=== PATIENT | male | born 1945 | race Caucasian/White ===

== ENCOUNTER 2023-10-22 09:44 | Inpatient (IN) ==
--- NOTE | 2023-10-05 10:24 | PAT Medication Instructions ---
Medication Instructions Date of Service October 05, 2023 Home Medications acetaminophen 500 mg tablet 1,500 mg PO BID aspirin 325 mg tablet 325 mg PO QAM dicyclomine 10 mg capsule 10 mg PO QID PRN Abdominal Pain empagliflozin 25 mg tablet 12.5 mg PO PM glipizide 5 mg tablet 5 mg PO BID hydrochlorothiazide 25 mg tablet 25 mg PO QAM lisinopril 20 mg tablet 20 mg PO PM omega 6-lyj-fxx-fish oil 120 mg-180 mg-500 mg capsule (Fish Oil) 1 cap PO DAILY omeprazole 20 mg capsule,delayed release 20 mg PO QAM potassium citrate 10 mEq (1,080 mg) tablet,extended release 10 meq PO QAM ASK your prescriber and surgeon aspirin 325 mg tablet 325 mg PO QAM STOP taking 2 weeks before surgery omega 7-zwp-xzo-fish oil 120 mg-180 mg-500 mg capsule (Fish Oil) 1 cap PO DAILY STOP taking 3 days before surgery empagliflozin 25 mg tablet 12.5 mg PO PM DO NOT take the morning of surgery dicyclomine 10 mg capsule 10 mg PO QID PRN Abdominal Pain glipizide 5 mg tablet 5 mg PO BID hydrochlorothiazide 25 mg tablet 25 mg PO QAM potassium citrate 10 mEq (1,080 mg) tablet,extended release 10 meq PO QAM Take morning of surgery With a small sip of water, OTHERWISE NOTHING TO EAT OR DRINK AFTER MIDNIGHT: acetaminophen 500 mg tablet 1,500 mg PO BID omeprazole 20 mg capsule,delayed release 20 mg PO QAM Take evening before surgery acetaminophen 500 mg tablet 1,500 mg PO BID dicyclomine 10 mg capsule 10 mg PO QID PRN Abdominal Pain (if needed) glipizide 5 mg tablet 5 mg PO BID lisinopril 20 mg tablet 20 mg PO PM Other Notes If you have any questions please call us at [phone] or [phone] or [phone] or [phone]
--- NOTE | 2023-10-08 12:42 | Anesthesiology Consultation ---
Date of Service October 08, 2023 Assessment & Plan (1) Encounter for pre-operative examination: Chart Review Chart Review: Acceptable Risk for Surgery (pending PCP clearance and LE ultrasound ) and Patient seen in Pre Admission Testing - Awaiting PCP clearance 10/15/23 (Dr. Harvinder Acuña0 [facility]) (Please fax preop testing to PCP (including EKG)) - Please obtain LE ultrasound from PCP office that was done 09/2023 - Check BSG AM DOS - Patient is not an OPJ candidate (currently 23 hour observation) Per PAT appt on 10/08/23, no recent illness/disease exposures, illness related symptoms, or recent illness/disease positive tests. Will leave to surgeon's discretion if preop Covid testing needed Teaching & Discussion Pre-Anesthesia Teaching/Discussion Notes: Instructed NPO after midnight before surgery,except medications with 15 cc of water. Medication instructions provided according to the PAT guidelines. History Surgery Operation Date: 10/22/23 07:00 Proposed Procedures p Left Reverse Total Shoulder Arthroplasty - Kofi Eldridge M.D. Height/Weight Height: 6 ft 1 in Weight: 84.4 kg Allergies Allergy/AdvReac Type Severity Reaction Status Date / Time latex Allergy Intermediate Rash Verified 10/05/23 08:56 Medications Home Medications Medication Instructions Recorded Confirmed Last Taken acetaminophen 500 mg tablet 1,500 mg PO BID 10/05/23 10/05/23 Unknown aspirin 325 mg tablet 325 mg PO QAM 10/05/23 10/05/23 Unknown dicyclomine 10 mg capsule 10 mg PO QID PRN Abdominal Pain 10/05/23 10/05/23 Unknown empagliflozin 25 mg tablet 12.5 mg PO PM 10/05/23 10/05/23 Unknown glipizide 5 mg tablet 5 mg PO BID 10/05/23 10/05/23 Unknown hydrochlorothiazide 25 mg tablet 25 mg PO QAM 10/05/23 10/05/23 Unknown lisinopril 20 mg tablet 20 mg PO PM 10/05/23 10/05/23 Unknown omega 9-ptm-rgc-fish oil 120 1 cap PO DAILY 10/05/23 10/05/23 Unknown mg-180 mg-500 mg capsule (Fish Oil) omeprazole 20 mg capsule,delayed 20 mg PO QAM 10/05/23 10/05/23 Unknown release potassium citrate 10 mEq (1,080 10 meq PO QAM 10/05/23 10/05/23 Unknown mg) tablet,extended release Past Medical History Medical History Double vision just up close, 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, 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, gets checked yearly - wears eye patch BPH (benign prostatic hyperplasia) Kidney stones hx Diverticular disease History of IBS GERD (gastroesophageal reflux disease) well controlled and stable Diabetes mellitus, type 2 oral meds only - blood sugars stable per patient Skin cancer (melanoma) removed from back Bladder cancer 2016 > s/p TURBT 2019 > s/p TURBT and then chemo injected at same time PTSD (post-traumatic stress disorder) no meds Aortic aneurysm Per ECHO 09/2023- Mild aortic root dilation at 3.7 cm, mild ascending aortic dilation at 3.6 cm Cyst of knee joint behind left knee DVT (deep venous thrombosis) 2015 > s/p bladder ca surgery Initially thought to have DVT June 2023- on Eliquis x 4 months- recently had repeat ultrasound- no DVT- only ganglion cyst - Eliquis d/c'ed Hypertension Hyperlipidemia Exercise / Class Metabolic Activity II 4-5 Yardwork/Stairs/Walk up hill (one flight of stairs - no chest pain or SOB ) Past Family History Family History Mother Diabetes Past Surgical History Surgical History History of lumbar surgery x2 History of arthroscopy left knee > Bakers cyst History of lithotripsy History of cystoscopy History of cholecystectomy History of colonoscopy History of tooth extraction History of tonsillectomy History of cardiac cath "several" yrs ago > no stents Past Anesthesia History No Hx of Anesthesia Complications and No Family Hx of Anesthesia Complications History of PONV No Hx of PONV and No Hx of Motion Sickness Social History Smoking Status: Former smoker Do You Dip or Chew Tobacco: No Smoking End Date: early Hx Alcohol Use: Yes Alcohol type: hard liquor alcohol intake frequency: a few times a month Hx Substance Use: Yes substance use type: marijuana Substance Use Type Other:: remote hx marijuana use Review of Systems - Hx of snoring- no hx of sleep study Patient denies chest pain, shortness of breath, dyspnea on exertion, reflux, cough, wheezing, palpitations. No hx of seizures, stroke, SC. No hx of blood transfusions Physical Exam Vital Signs VITALS BP 124/80 P 57 TEMP 97.8 SP02 97% RESP 16 Constitutional no acute distress Wearing right sided eye patch ENMT Mouth: no TMJ clicking Thyromental Distance: > or= 3.5 Finger Breadths (3.5) Mallampati Class: II Missing molars Neck neck extension not limited Respiratory normal respiratory effort; no respiratory distress Auscultation: lungs clear to auscultation bilaterally; no wheezes Cardiovascular Rate/Rhythm: regular rate and regular rhythm Heart Sounds: no murmur Vessels: no carotid bruit Musculoskeletal Spine: no pain with cervical ROM Extremities: extremities normal to inspection Psychiatric Orientation: alert Lab Results Anesthesia Preop Results Results Anesthesia Widget: WBC 6.32 K/ul (4.8-10.8) 10/08/23 Hgb 15.0 g/dl (14.0-18.0) 10/08/23 Hct 45.4 % (42.0-52.0) 10/08/23 Plt 204 K/uL (130-400) 10/08/23 Na 139 mmol/L (136-145) 10/08/23 K 4.5 mmol/L (3.5-5.1) 10/08/23 Cl 104 mmol/L (98-107) 10/08/23 CO2 30 mmol/L (21-32) 10/08/23 BUN 33 mg/dl (6-23) H 10/08/23 Creat 1.22 mg/dl (0.6-1.4) 10/08/23 Glucose Level 113 mg/dl (70-99(Fasting)) H 10/08/23 PT 11.1 Seconds (9.0-12.0) 10/08/23 PTT 27 Seconds (21-31) 10/08/23 INR 1.0 (0.9-1.1) 10/08/23 HA1c 7.0 % (4.5-5.6) H 10/08/23 Urine Color Yellow 10/08/23 Urine Appearance Clear (Clear) 10/08/23 Urine pH 5.0 (4.5-7.5) 10/08/23 Urine Specific Yoder 1.032 (1.000-1.030) H 10/08/23 Urine Protein Negative (Negative) 10/08/23 Urine Glucose (UA) 3+ (Negative) H 10/08/23 Urine Ketones Trace (Negative) H 10/08/23 Urine Blood Negative (Negative) 10/08/23 Urine Nitrite Negative (Negative) 10/08/23 Urine Bilirubin Negative (Negative) 10/08/23 Urine Urobilinogen Negative (Negative) 10/08/23 Urine Leukocyte Esterase Negative (Negative) 10/08/23 Blood Type O Negative 10/08/23 Antibody Screen NEGATIVE 10/08/23 Testing Electrocardiogram Date: 10/08/23 Unusual P axis, possible ectopic atrial rhythm at 56bpm (Discussed with Dr. Dozier- no significant cardiac history, good functional status, ECHO 09/2023 without acute issues; will send EKG to PCP to review at preop appt but otherwise no additional follow up is needed at this time) Chest X-Ray Date: 10/08/23 FINDINGS: Lung volumes are normal. There is no consolidation to suggest pneumo lucia. Linear lingular densities favor atelectasis or scarring. There is no pneumothorax or pleural effusion. Cardiac size is normal. Mediastinal contours are normal. There is no evidence for pulmonary edema. IMPRESSION: No acute cardiopulmonary findings. Echocardiogram Date: 09/14/23 EF: 54% LV Function: normal RWMA: + none Other Findings: + diastolic dysfunction (Grade I ) Mild MR Mild AR Mild aortic root dilation- aortic root 3.7cm. Mild ascending aorta dilation- 3.6cm Estimated PASP 34mmHg
--- NOTE | 2023-10-21 15:43 | History & Physical Report ---
Date of Service October 21, 2023 Assessment & Plan (1) Arthritis of left glenohumeral joint: Plan: He has left shoulder glenohumeral joint arthritis with a known full-thickness rotator cuff tear on MRI back in 2020. We discussed further conservative management with repeat injections versus definitive surgical intervention, and he would much prefer the latter at this point, I think this is reasonable. I advised him his only viable surgical treatment option is a reverse total shoulder arthroplasty. This was explained in detail to him, including, and limitations in motion after the surgery. He would like to proceed with this surgery. We will need medical clearance, especially to come off of his Eliquis for at least 3 days prior to surgery. We also need to check his most recent hemoglobin A1c. Risks, benefits, and alternatives of surgery were explained in detail. The surgical procedure, as well as postoperative recovery and rehabilitation, was also explained in detail. Risks include bleeding; infection; damage to surrounding structures such as nerves, blood vessels, and tendons that run in the area; persistent pain or stiffness; hardware failure; dislocation; brachial plexus palsy; blood clots; or need for further surgery. The patient understands all of this and wishes to proceed with surgery. Risks will be reviewed on the day of surgery and informed consent obtained. History of Present Illness Chief Complaint: Left shoulder pain Primary Care Provider: Harvinder Acuña DO Mr. Santacruz returns for his left shoulder pain. Again, he is an 78-year old male with left shoulder arthritis. He notes relatively mild aches and pains in that left shoulder for many years, but it got acutely worse around October 2020 without any specific injury. I initially evaluated him in November 2020, diagnosed him with fairly severe glenohumeral joint arthritis with a rotator cuff tear, and gave him a steroid injection as first-line treatment. He did very well with that injection, and I did not see him again until March 2023, and repeated his injection at that time. This last injection only gave him relief of his pain for about 3 months, but the injection has since worn off and his pain is returned. This is severely limiting to him. This pain has significantly worsened over the past 3 years. It does wake him up at night. Of note, he does have a significant history of blood clots. He has had 2 blood clots in his left leg, but denies history of PE. He is currently on Eliquis. He reports that he is scheduled for an ultrasound in early September, and based on the results of this he may be able to come off of the Eliquis. He also has a history of diabetes, and states that his last A1c was about 7.1. He has a history of bladder cancer without known metastases. He has worsening pain and function in that shoulder, and difficulty with overhead motion. Allergies Allergy/AdvReac Type Severity Reaction Status Date / Time latex Allergy Intermediate Rash Verified 10/05/23 08:56 Home Medications Medication Instructions Recorded Confirmed Type acetaminophen 500 mg tablet 1,500 mg PO BID 10/05/23 10/05/23 History aspirin 325 mg tablet 325 mg PO QAM 10/05/23 10/05/23 History dicyclomine 10 mg capsule 10 mg PO QID PRN Abdominal Pain 10/05/23 10/05/23 History empagliflozin 25 mg tablet 12.5 mg PO PM 10/05/23 10/05/23 History glipizide 5 mg tablet 5 mg PO BID 10/05/23 10/05/23 History hydrochlorothiazide 25 mg tablet 25 mg PO QAM 10/05/23 10/05/23 History lisinopril 20 mg tablet 20 mg PO PM 10/05/23 10/05/23 History omega 3-jyg-sqq-fish oil 120 1 cap PO DAILY 10/05/23 10/05/23 History mg-180 mg-500 mg capsule (Fish Oil) omeprazole 20 mg capsule,delayed 20 mg PO QAM 10/05/23 10/05/23 History release potassium citrate 10 mEq (1,080 10 meq PO QAM 10/05/23 10/05/23 History mg) tablet,extended release Past Med/Surg History Medical History Double vision just up close, 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, 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, gets checked yearly - wears eye patch BPH (benign prostatic hyperplasia) Kidney stones hx Diverticular disease History of IBS GERD (gastroesophageal reflux disease) well controlled and stable Diabetes mellitus, type 2 oral meds only - blood sugars stable per patient Skin cancer (melanoma) removed from back Bladder cancer 2015 > s/p TURBT 2019 > s/p TURBT and then chemo injected at same time PTSD (post-traumatic stress disorder) no meds Aortic aneurysm Per ECHO 09/2023- Mild aortic root dilation at 3.7 cm, mild ascending aortic dilation at 3.6 cm Cyst of knee joint behind left knee DVT (deep venous thrombosis) 2016 > s/p bladder ca surgery Initially thought to have DVT June 2023- on Eliquis x 4 months- recently had repeat ultrasound- no DVT- only ganglion cyst - Eliquis d/c'ed Hypertension Hyperlipidemia Surgical History History of lumbar surgery x2 History of arthroscopy left knee > Bakers cyst History of lithotripsy History of cystoscopy History of cholecystectomy History of colonoscopy History of tooth extraction History of tonsillectomy History of cardiac cath "several" yrs ago > no stents Family History Mother Diabetes Social History Smoking Status: Former smoker Smoking End Date: early ; Second Hand Exposure: No; Do You Dip or Chew Tobacco: No; Tobacco Cessation Education Requested by Patient: No Hx Alcohol Use: Yes Alcohol type: hard liquor Hx Substance Use: Yes Substance Use Type Other:: remote hx marijuana use Preferred Language: Malay Communication Ability: Effective Security Police Officer Required: No Beliefs That Will Affect Care: None Current Living Situation: Spouse Other Information That Helps Us Care for You: No Feels Safe at Home: Yes Safety Concerns: Feels Safe At This Time Assistive Devices: Denture - Lower and Glasses Physical Exam Physical Exam: Examination of the left shoulder shows mild limitation in shoulder range of motion due to pain, with palpable crepitus during motion. Rotator cuff strength is globally weak. Results & Data Diagnostic Findings Previous x-rays of the left shoulder from December 2022 were independently int erpreted by me and compared with previous x-rays from October 2020. They show progression of the glenohumeral joint arthritis, now severe, and progression of the proximal migration of the humeral head. Previous MRI of the left shoulder from November 2020 was reviewed. It shows advanced arthritis at the glenohumeral joint with near complete loss of the joint space. There is a large full-thickness tear involving the supraspinatus with significant tendon retraction and proximal migration of the humeral head.
[~2023-10-22 09:44] MED LIST: ACETAMINOPHEN 500 MG TAB PO SCH; BUPIVACAINE 0.5 % 5 MG/1 ML PF 10ML VIAL ONE; CeleBREX 200 MG CAP PO SCH; FAMOTIDINE 20 MG TAB PO SCH; GABAPENTIN 300 MG CAP PO SCH; LR 15ML/HR IV SCH; LR 60ML/HR IV SCH; METOCLOPRAMIDE HCL 10 MG TABLET PO SCH; TRANEXAMIC ACID 1,000 MG **IV Pre-op IV SCH; ceFAZolin 2000MG 2,000 MG/15 ML SYR IV SCH; dexAMETHasone 4 MG TAB PO SCH
[2023-10-22] MEDS ORDERED: ONDANSETRON INJ 2 MG/ML 2 ML VIAL ONE (10:34)
[2023-10-22] MEDS ORDERED: LIDOCAINE 2% 2 ML VIAL/AMP(20MG/ML) INFIL ONE (10:34)
[2023-10-22] MEDS ORDERED: MIDAZOLAM HCL 1 MG/ML 2ML VIAL ONE (10:34)
[2023-10-22] MEDS ORDERED: DEXAMETHASONE SOD INJ 4 MG/ML VIAL ONE (10:34)
[2023-10-22] MEDS ORDERED: GLYCOPYRROLATE 0.2 MG/ML VIAL ONE (10:34)
[2023-10-22] MEDS ORDERED: ROCURONIUM BROMIDE 10 MG/ML 5 ML VIAL IV ONE (10:34)
[2023-10-22] MEDS ORDERED: PROPOFOL IV EMULSION 10 MG/ML 20 ML VIAL IV ONE (10:34)
[2023-10-22] MEDS ORDERED: fentaNYL citrate PF 100 MCG/2 ML VIAL ONE (10:34)
--- NOTE | 2023-10-22 11:56 | History & Physical Bridge Note ---
Date of Service October 22, 2023 History & Physical Bridge Note I have examined the patient, reviewed the History & Physical and in the interval since the performance of the History & Physical I have noted the following changes of clinical significance: no changes noted
[2023-10-22] MEDS ORDERED: PROMETHAZINE HCL 6.25 MG in SODIUM CHLORIDE 0.9% 50 ML IV PRN (11:58)
[2023-10-22] MEDS ORDERED: ONDANSETRON INJ 2 MG/ML 2 ML VIAL IV PRN ×2 (11:58→15:22)
[2023-10-22] MEDS ORDERED: KETOROLAC 30 MG/ML VIAL IV PRN (11:58)
[2023-10-22] MEDS ORDERED: ATROPINE SULFATE 0.1 MG/ML 10ML SYR IV PRN (11:58)
[2023-10-22] MEDS ORDERED: LABETALOL HCL IV 5 MG/ML 20ML IV PRN (11:58)
[2023-10-22] MEDS ORDERED: fentaNYL citrate PF 100 MCG/2 ML VIAL IV PRN (11:58)
[2023-10-22] MEDS ORDERED: SUGAMMADEX SODIUM 200 MG/2 ML VIAL IV ONE (12:48)
[2023-10-22] MEDS ORDERED: ePHEDrine sulfate 50 MG/5 ML SYR ONE (12:48)
[2023-10-22] MEDS ORDERED: PHENYLEPHRINE 100MCG/ML 10ML SYR IV ONE (12:54)
--- NOTE | 2023-10-22 14:07 | Operative Report ---
Post Operative Report Pre & Post Diagnosis Operation Date: 10/22/23 11:40 Pre-Op Diagnosis: Left shoulder glenohumeral joint arthritis with rotator cuff tear Post-Op Diagnosis: Left shoulder glenohumeral joint arthritis with rotator cuff tear I identified the patient and participated in the time-out.: Yes Procedure Operation Date: 10/22/23 11:40 Actual Procedures Left reverse total shoulder arthroplasty (26503) Open biceps tenodesis (78588) - Kofi Eldridge M.D. Surgeon Kofi Eldridge MD Hide And Skin Processing Worker Osmani Fernández PA-C Estimated Blood Loss 75 Findings Consistent with Post-Op Diagnosis Specimens None Drains None Anesthesia Type General Regional Complications none Disposition Disposition: Recovery Room Indications Mr. Santacruz is an 78-year-old male with chronic left shoulder pain and weakness. History, clinical exam, and imaging were consistent with the above diagnosis. Risks, benefits, and alternatives of surgery were explained in detail. The patient understood all this and wished to proceed. Description of Procedure Components Implanted: Tornier Reverse Total Shoulder implants Perform glenoid baseplate: 29mm, 15 degree full wedge with 6.5mm central screw and 5.0mm peripheral screws x 4 Glenosphere: 39mm, +3mm eccentric offset Ascend Flex humeral stem: 6B Standard length (86mm) Humeral tray: 3.5 mm offset, +6mm thickness Polyethylene insert: 39mm, +9mm thickness Patient was identified in the preoperative holding area. Operative extremity was marked. Regional blockade was given by the Anesthesia Staff. Patient was then brought back to the operating room, and general anesthesia was induced without complication. Appropriate weight-based dose of Ancef was infused intravenously for antibiotic prophylaxis. The patient was then placed in the beachchair position. Left arm was then prepped and draped in a standard sterile fashion using Chlorhexidine prep. A standard deltopectoral incision was made through the skin and subcutaneous tissue. The cephalic vein was identified and retracted medially. Small branches to the deltoid were coagulated as necessary. The clavipectoral fascia was then incised and the subdeltoid space was opened. The rotator cuff was found to be deficient, and I therefore decided to perform a reverse total shoulder arthroplasty as planned preoperatively. The biceps tendon was identified within the bicipital groove and tenodesed at the superior border of the pectoralis tendon with #2 FiberWire suture. The biceps tendon was then divided proximal to the tenodesis site and the rotator interval was opened. The proximal portion of the biceps tendon was excised. The remaining subscapularis tendon was elevated subperiosteally off of the lesser tuberosity. The glenohumeral joint was then dislocated, and large osteophytes were debrided with a ronguer. The intramedullary canal of the humerus was then opened with a canal finder. The humeral head cut was then made in the appropriate inclination and version using the cutting guide. The humeral canal was then sequentially broached to the appropriate size. A protective cap was then placed on top of the humeral trial. I then turned my attention to the glenoid. The proximal stump of the biceps tendon was excised, along with the labrum circumferentially around the glenoid. The Blueprint drill guide was then positioned on the glenoid, and the guidepin was then inserted. The 15 degree angled reamer was then inserted over the guidepin and an reamed to an appropriate depth. The central screw hole was drilled, and appropriate length 6.5mm central screw was selected. The baseplate was then implanted into place according to our preoperative Blueprint plan by tightening down the central screw. A peripheral 5mm nonlocking screw was placed postero-superiorly first for additional compression of the baseplate, and then additional locking 5 mm peripheral screws were placed to complete fixation of the baseplate. Glenosphere was then impacted and secured. A trial humeral tray and insert were placed on the trial humeral stem, and a trial reduction was carried out. Once I achieved acceptable joint stability and range of motion with the trial implants, the final humeral implants were assembled on the back table and then impacted into position. The shoulder was then reduced and taken through full range of motion to ensure good stability and acceptable motion. Wound was then copiously irrigated with sterile saline. Deep fascia was closed with 0 V-lock suture. Subcutaneous tissue was closed with 2-0 V-lock, and skin was closed with 3-0 V-lock. Skin was then sealed with Dermabond. Sterile dressings were then applied with a waterproof silver-impregnated dressing, and the arm was placed into a sling. The patient was awakened from anesthesia and taken to the Post Anesthesia Care Unit in stable condition. There were no immediate complications from the procedure. I was present and scrubbed for the entire procedure, with the exception of final skin closure and dressing application. Due to the complex nature of the procedure, the entire surgery was performed with the operational assistance of Osmani Fernández PA-C. The assistant merchandise manager, under direct supervision, was involved in the performance of all aspects of the surgical procedure including hemostasis, tissue incision and retraction, instrument management, patient positioning, and wound closure. I attest to the content of the Intraoperative Record and any orders documented therein. Any exceptions are noted below.
--- NOTE | 2023-10-22 14:43 | Anesthesiology Progress Note ---
Date of Service October 22, 2023 Anesthesia Post Procedure Vital Signs Vital Signs: Temp Pulse Pulse Resp BP Pulse Ox O2 Del Method 10/22/23 14:40 82 18 134/93 96 Room Air 10/22/23 14:30 82 15 143/91 H 95 Oxymask 10/22/23 14:20 83 15 138/88 100 Oxymask 10/22/23 14:13 36.6 C 85 16 138/80 100 Oxymask 10/22/23 10:24 36.6 C 60 20 146/87 H 97 Room Air O2 Flow Rate 10/22/23 14:40 10/22/23 14:30 2 10/22/23 14:20 6 10/22/23 14:13 10 10/22/23 10:24 Transfer of Care Handoff Completed per policy Notes Mental Status: alert / awake / arousable Patient Amnestic to Procedure: Yes Nausea / Vomiting: adequately controlled Pain: adequately controlled Airway Patency, RR, SpO2: stable & adequate BP & HR: stable & adequate Hydration State: stable & adequate Anesthetic Complications: no major complications apparent
[2023-10-22] MEDS ORDERED: METOCLOPRAMIDE HCL INJ 5 MG/ML 2 ML VIAL IV PRN (15:22)
[2023-10-22] MEDS ORDERED: oxyCODONE HCL IR 5 MG TAB (IMMEDIATE RELEASE) PO PRN (15:22)
[2023-10-22] MEDS ORDERED: DICYCLOMINE HCL 10 MG CAP PO PRN (15:22)
[2023-10-22] MEDS ORDERED: bisacodyL 10 MG SUPP PR PRN (15:22)
[2023-10-22] MEDS ORDERED: MAGNESIUM HYDROXIDE SUSP 30 ML UDC PO PRN (15:22)
[2023-10-22] MEDS ORDERED: NALOXONE HCL 0.4 MG/1 ML VIAL/CARP IV PRN (15:22)
[2023-10-22] MEDS ORDERED: PHARMACY GLYCEMIC MGMT CONSULT PRN (15:22)
--- NOTE | 2023-10-22 15:28 | XRay Report ---
XR shoulder LT min 2V routine CLINICAL HISTORY: Post shoulder surgery COMPARISON STUDY: None. FINDINGS: Status post reverse left total shoulder arthroplasty. The hardware is intact. No fracture o r dislocation. IMPRESSION: Status post reverse left total shoulder arthroplasty. No evidence for hardware complicat ion. ACT 112: Negative or not required by law. Electronically signed by: Robel Ortez M.D. 10/22/2023 3:27 PM
[2023-10-22] MEDS: SODIUM CHLORIDE 0.9% 1,000 ML IV SCH (15:41)
[2023-10-22] MEDS ORDERED: GLUCOSE 10 TAB/TUBE PO PRN (15:45)
[2023-10-22] MEDS ORDERED: DEXTROSE 50% 50 ML SYRINGE IV PRN (15:45)
[2023-10-22] MEDS ORDERED: GLUCOSE 40% GEL 15 GM TUBE PO PRN (15:45)
[2023-10-22] MEDS ORDERED: GLUCAGON FOR INJ 1 MG VIAL IM PRN (15:45)
[2023-10-22] MEDS ORDERED: CARBOHYDRATES FOR HYPOGLYCEMIA PO PRN (15:45)
[2023-10-22] MEDS ORDERED: LANTUS PER UNIT CHARGE SC STA (15:46)
--- NOTE | 2023-10-22 15:53 | Pharmacy Report ---
Pharmacy Glycemic Short Note 2 - Date of Service October 22, 2023 - Glycemic Short BSG Results (Last 24 hours): 10/22/23 10/22/23 10:16 14:23 POC Glucose 129 H 144 H OUTPATIENT ANTIDIABETIC REGIMEN: * Jardiance 12.5 mg PO daily (of note, it is not recommended to split Jardiance tabs in half) * Glipizide 5 mg PO BID * HbA1c: 7.0% (10/08/23) ASSESSMENT: * 78 yo M admitted on 10/22/23 postoperatively following a left reverse total shoulder arthroplasty. Pharmacy has been consulted to assist with inpatient glycemic management. Patient is a Type 2 diabetic as an outpatient. Please refer to outpatient regimen and most recent HbA1c above. * Preop BSG was 129 mg/dL. Received 8 mg PO dexamethasone preop and 4 mg IV dexamethasone intraop per my review of chart. Postop BSG was 144 mg/dL. * Will give a one time dose of basal insulin at 0.25 units/kg. Reassess basal needs tomorrow AM. Novolog ordered based on weight/stress of 3 for now. Ordered a T2DM diet, will follow up at dinner time to ensure patient is tolerating PO intake postop. Likely will need to back off insulin dosing once steroids wear off. PLAN FOR INPATIENT GLYCEMIC CONTROL: * Hold outpatient oral diabetes medications * Basal insulin * Lantus 20 units SC x 1 now * Bolus insulin * NovoLog per scale ACHS or Q6hrs while NPO * Goal Range: Low 110 mg/dL - High 140 mg/dL * Correction Factor: 20 mg/dL/unit * Nutritional / Prandial insulin per carb ratio of 1 unit per 7 grams CHO consumed
[2023-10-22] MEDS: ACETAMINOPHEN 500 MG TAB PO SCH ×2 (16:49→23:18)
[2023-10-22] MEDS: INSULIN ASPART PER UNIT CHARGE SC SCH ×2 (16:58→20:45)
[2023-10-22] MEDS: IBUPROFEN 600 MG TAB PO SCH (20:45)
[2023-10-22] MEDS: DOCUSATE SODIUM 100 MG CAP PO SCH (20:46)
[2023-10-22] MEDS: ceFAZolin 2000MG 2,000 MG/15 ML SYR IV SCH (20:47)
[2023-10-22] MEDS ORDERED: EMPAGLIFLOZIN 25 MG TAB PO SCH (21:00)
[2023-10-22] MEDS ORDERED: glipiZIDE 5 MG TAB PO SCH (21:00)
[2023-10-22] MEDS ORDERED: SENNA 8.6 MG TAB PO SCH (21:00)
[2023-10-22] MEDS ORDERED: lisinopril 20 MG TAB PO SCH (21:00)
[2023-10-23] MEDS: SODIUM CHLORIDE 0.9% 1,000 ML IV SCH (00:44)
[2023-10-23] MEDS: IBUPROFEN 600 MG TAB PO SCH ×2 (03:52→09:43)
[2023-10-23] MEDS: ceFAZolin 2000MG 2,000 MG/15 ML SYR IV SCH (03:53)
[2023-10-23] MEDS: ACETAMINOPHEN 500 MG TAB PO SCH (05:14)
[2023-10-23 07:56] LABS: Basophils # (auto) 0.01 K/uL (0.00-0.20); Basophils % (auto) 0.1 %; Hematocrit (blood only) 40.5 % (42.0-52.0); Hemoglobin 13.7 g/dl (14.0-18.0); Immature Granulocytes # (auto) 0.04 K/uL (0.01-0.20); Immature Granulocytes % (auto) 0.5 %; Lymphocytes # (auto) 0.58 K/uL (1.20-3.40); Lymphocytes % (auto) 6.8 %; Mean Corpuscular Hemoglobin 29.1 pg (25.0-34.0); Mean Corpuscular Hgb Conc 33.8 g/dL (32.0-36.0); Mean Platelet Volume 9.7 fL (9.4-12.4); Monocytes % (auto) 4.7 %; Neutrophils # (auto) 7.47 K/uL (1.40-6.50); Neutrophils % (auto) 87.9 %; Platelet Count 179 K/uL (130-400); RDW Coefficient of Variation 12.7 % (11.5-14.5); RDW Standard Deviation 39.6 fL (36.4-46.3); Red Blood Count 4.71 M/uL (4.70-6.10)
[2023-10-23 08:02] LABS: BUN Creatinine Ratio 25.8 (10-20); Calcium 9.6 mg/dl (8.6-10.3); Creatinine Clr Calc Pharmacy 53.7 ml/min; Est GFR (African American) 63.2 ml/min; Est GFR (Non-African American) 54.6 ml/min; Potassium 4.1 mmol/L (3.5-5.1)
--- NOTE | 2023-10-23 08:23 | Orthopedic Progress Note ---
Date of Service October 23, 2023 Assessment & Plan (1) Status post reverse arthroplasty of left shoulder: Plan: 78 yo male stable POD #1 s/p left reverse TSA 1. Med management 2. DVT prophylaxis- ASA, SCDs 3. PT/OT 4. D/C planning- home w/ OPPT Admission and Anticipated Discharge Date Admission Date: October 22, 2023 Subjective Pt sitting bedside, eating breakfast, pain controlled, denies complaints Physical Exam Physical Exam: Silverlon dressing in place, fingers/arm still numb, function slowly returning Results & Data Vital Signs (Past 12 Hours) Vital Signs Temp Pulse Resp BP Pulse Ox O2 Del Method 10/23/23 07:41 36.6 C 95 H 17 137/92 99 Room Air 10/23/23 04:07 36.6 C 97 H 16 138/89 98 Room Air 10/22/23 23:08 36.6 C 86 16 133/86 96 Room Air 10/22/23 20:45 Room Air Laboratory Results 10/23/23 10/23/23 10/22/23 Range/Units 07:39 06:20 20:37 WBC 8.50 (4.8-10.8) K/ul RBC 4.71 (4.70-6.10) M/uL Hgb 13.7 L (14.0-18.0) g/dl Hct 40.5 L (42.0-52.0) % MCV 86.0 (80.0-100.0) fL MCH 29.1 (25.0-34.0) pg MCHC 33.8 (32.0-36.0) g/dL RDW Std Deviation 39.6 (36.4-46.3) fL RDW Coeff of Ifeoma 12.7 (11.5-14.5) % Plt Count 179 (130-400) K/uL MPV 9.7 (9.4-12.4) fL Immature Gran % (Auto) 0.5 % Neut % (Auto) 87.9 % Lymph % (Auto) 6.8 % [place] % (Auto) 4.7 % Eos % (Auto) 0.0 % Baso % (Auto) 0.1 % Neut # (Auto) 7.47 H (1.40-6.50) K/uL Lymph # (Auto) 0.58 L (1.20-3.40) K/uL [place] # (Auto) 0.40 (0.11-0.59) K/uL Eos # (Auto) 0.00 (0.00-0.50) K/uL Baso # (Auto) 0.01 (0.00-0.20) K/uL Immature Gran # (Auto) 0.04 (0.01-0.20) K/uL Sodium 134 L (136-145) mmol/L Potassium 4.1 (3.5-5.1) mmol/L Chloride 101 (98-107) mmol/L Carbon Dioxide 23 (21-32) mmol/L Anion Gap 10 (3-11) BUN 32 H (6-23) mg/dl Creatinine 1.24 (0.6-1.4) mg/dl Est Cr Clr Drug Dosing 53.7 ml/min Est GFR ( Amer) 63.2 ml/min Est GFR (Non-Af Amer) 54.6 ml/min BUN/Creatinine Ratio 25.8 H (10-20) Glucose 174 H (70-99(Fasting)) mg/dl POC Glucose 136 H 196 H (70-99) mg/dl Calcium 9.6 (8.6-10.3) mg/dl 10/22/23 10/22/23 10/22/23 Range/Units 16:30 14:23 10:16 WBC (4.8-10.8) K/ul RBC (4.70-6.10) M/uL Hgb (14.0-18.0) g/dl Hct (42.0-52.0) % MCV (80.0-100.0) fL MCH (25.0-34.0) pg MCHC (32.0-36.0) g/dL RDW Std Deviation (36.4-46.3) fL RDW Coeff of Ifeoma (11.5-14.5) % Plt Count (130-400) K/uL MPV (9.4-12.4) fL Immature Gran % (Auto) % Neut % (Auto) % Lymph % (Auto) % [place] % (Auto) % Eos % (Auto) % Baso % (Auto) % Neut # (Auto) (1.40-6.50) K/uL Lymph # (Auto) (1.20-3.40) K/uL [place] # (Auto) (0.11-0.59) K/uL Eos # (Auto) (0.00-0.50) K/uL Baso # (Auto) (0.00-0.20) K/uL Immature Gran # (Auto) (0.01-0.20) K/uL Sodium (136-145) mmol/L Potassium (3.5-5.1) mmol/L Chloride (98-107) mmol/L Carbon Dioxide (21-32) mmol/L Anion Gap (3-11) BUN (6-23) mg/dl Creatinine (0.6-1.4) mg/dl Est Cr Clr Drug Dosing ml/min Est GFR ( Amer) ml/min Est GFR (Non-Af Amer) ml/min BUN/Creatinine Ratio (10-20) Glucose (70-99(Fasting)) mg/dl POC Glucose 170 H 144 H 129 H (70-99) mg/dl Calcium (8.6-10.3) mg/dl
[2023-10-23] MEDS ORDERED: hydroCHLOROthiazide 25 MG TAB PO SCH (09:00)
[2023-10-23] MEDS ORDERED: POTASSIUM CITRATE 10 MEQ TAB PO SCH (09:00)
[2023-10-23] MEDS ORDERED: ASPIRIN 325 MG ECTAB PO SCH (09:00)
[2023-10-23] MEDS ORDERED: MULTIVITAMIN TAB PO SCH (09:00)
[2023-10-23] MEDS ORDERED: PANTOprazole 40 MG TAB PO SCH (09:00)
[2023-10-23] MEDS: INSULIN ASPART PER UNIT CHARGE SC SCH (09:05)
[2023-10-23] MEDS: DOCUSATE SODIUM 100 MG CAP PO SCH (09:45)
--- NOTE | 2023-10-27 10:26 | Discharge Summary ---
Date of Service October 27, 2023 Admission HPI Per Admitting Provider Mr. Santacruz returns for his left shoulder pain. Again, he is an 78-year old male with left shoulder arthritis. He notes relatively mild aches and pains in that left shoulder for many years, but it got acutely worse around October 2020 without any specific injury. I initially evaluated him in November 2020, diagnosed him with fairly severe glenohumeral joint arthritis with a rotator cuff tear, and gave him a steroid injection as first-line treatment. He did very well with that injection, and I did not see him again until March 2023, and repeated his injection at that time. This last injection only gave him relief of his pain for about 3 months, but the injection has since worn off and his pain is returned. This is severely limiting to him. This pain has significantly worsened over the past 3 years. It does wake him up at night. Of note, he does have a significant history of blood clots. He has had 2 blood clots in his left leg, but denies history of PE. He is currently on Eliquis. He reports that he is scheduled for an ultrasound in early September, and based on the results of this he may be able to come off of the Eliquis. He also has a history of diabetes, and states that his last A1c was about 7.1. He has a history of bladder cancer without known metastases. He has worsening pain and function in that shoulder, and difficulty with overhead motion. Principal Diagnosis Left shoulder glenohumeral joint arthritis with rotator cuff tear Discharge Data Allergies Allergy/AdvReac Type Severity Reaction Status Date / Time latex Allergy Intermediate Rash Verified 10/22/23 10:14 Procedures Performed Operation Date: 10/22/23 11:40 Actual Procedures p Left Reverse Total Shoulder Arthroplasty(Left) - Kofi Eldridge M.D. Ordered Studies 10/22/23 05:00 US - OR guided needle placemen Routine Hospital Course (1) Arthritis of left glenohumeral joint: Patient underwent a left reverse total shoulder arthroplasty on the date of admission. Patient tolerated the procedure well and was transferred up to the general orthopedic surgery floor in stable condition. Perioperative antibiotic coverage was initiated, and continued for 24 hours postoperatively. DVT prophylaxis was initiated consisting of SCDs and aspirin 325 mg daily. Perioperative pain control regimen was transitioned to strictly oral pain medications by postoperative day 1. On postoperative day 1 the patient was doing very well. Pain was well controlled, and patient was mobilizing well with therapy. Patient was determined be safe and ready for discharge to home. Total Time Total Time Spent Total Time Spent (In Minutes): 15 Discharge Plan Discharge Items Patient Disposition: Home - Self-Care Reason For Visit: Left Shoulder Rotator Cuff Tear Arthroplasty Discharge Diagnosis: Left shoulder glenohumeral joint arthritis with rotator cuff tear Activity: Per Instructions section Non-emergency contact: Surgeon Call non-emergency contact if: your pain is not controlled, your temperature is above 101.5, your wound has increased redness and your wound has increased drainage Follow-up/Referrals: Kofi Eldridge M.D. [Physician] - Harvinder Acuña DO [Primary Care Provider] - Diet: Carb Consistent or DM2 Addtl Attending Provider Instructions: Things to Watch Out For -Go to the Emergency Room if you have sudden onset of nausea, vomiting, chest pain, shortness of breath, or uncontrollable pain. -Call the clinic or go to the Emergency Room if you have a sudden increase in the amount of wound drainage or the drainage becomes thick, yellow or green, or foul-smelling. -For routine questions, call the clinic at [phone] during regular business hours (8am-5pm). For urgent issues after regular business hours, you may call the clinic to be connected to the on-call physician. Dressings -A special waterproof, silver-impregnated dressing was placed on your shoulder. Keep this dressing in place for 1 week after surgery. You may shower with the waterproof dressing in place, but do not soak the dressing in the bathtub or pool. -One week after surgery, you may remove the waterproof dressing. You may continue to shower, and let water run BRIEFLY over the incision, but do not soak the incision in the bathtub or pool for 2 weeks. You may also gently clean the incision with mild soap and water; pat the incision dry after cleaning-do not rub the incision. Apply a new dressing daily thereafter. Shoulder Exercises -Keep your operative shoulder in the sling for comfort, except as detailed below. -You should come out of the sling 4-5 times a day for passive pendulum exercises: lean over and swing your arm in a circular pattern. -You should also do active-assisted forward flexion exercises: use your opposite hand to lift your operative arm forward to 90 degrees. -Do not flex your elbow (curl motion) or supinate your forearm (rotating palm up) against resistance. -Do not use your arm to push yourself up out of bed or up from a seated position. Ice Pack -You may use an ice pack for pain relief. You should use it 20-30 minutes at a time. Place a towel between the ice pack and your skin to prevent frostbite. -You should use the ice pack fairly regularly for the first 1-2 weeks after surgery to help reduce pain and inflammation. -About 2 weeks after your surgery, you should start using heat to loosen up your shoulder prior to doing your stretching exercises, then use the cooling sleeve after your exercises are complete to reduce swelling and pain. Pain Medicines -Your prescriptions for pain medications have already been sent to the pharmacy on file at [facility]. -You have been prescribed an anti-inflammatory (Motrin/ibuprofen) and a non- narcotic pain medicine (Tylenol/acetaminophen). These are your primary pain medications. Take them each every 6 hours as instructed. It is recommended that you stagger these medicines every 3 hours (i.e. take ibuprofen at 8:00 am, then acetaminophen at 11:00 am, then ibuprofen at 2:00 pm, etc) -DO NOT take any additional anti-inflammatories (Advil, Aleve/naproxen, Mobic/meloxicam, Celebrex) or any additional Tylenol/acetaminophen products with these prescribed medications. -You have also been prescribed an additional narcotic pain medication (oxycodone). Take this medicine ONLY for breakthrough pain not controlled by the ibuprofen and acetaminophen. -Do not drive or operate heavy machinery while taking the narcotic medication. -Common side effects of narcotic pain medicines include itching, nausea, constipation, and feeling "loopy". However, if you develop a rash or hives, stop taking the medicine and call the clinic. If you develop swelling in your throat or difficulty breathing, go to the Emergency Room or call 911 IMMEDIATELY. -You may take over the counter stool softeners if needed for constipation. Aspirin -Take a full strength (325mg) aspirin every day for 4 weeks (28 days) to prevent blood clots. -If you were taking a baby aspirin (81mg) prior to surgery, you may resume taking this 81mg dose after you complete the 28-day course of the 325mg strength dose; do not take the 325mg dose in addition to your 81mg dose. -Be aware that you will bruise easier while taking Aspirin; this is normal. However, if you develop a significantly large area of swelling after an injury, or have a cut that will not stop bleeding, call the clinic or go to the Emergency Room immediately. Pending Studies at Discharge: No Stand-Alone Forms: My [facility] Medications and DC Order Prescriptions: Continued aspirin 325 mg Tablet 325 mg PO QAM lisinopril 20 mg Tablet 20 mg PO PM potassium citrate 10 mEq (1,080 mg) Tablet Extended Release 10 meq PO QAM omeprazole 20 mg Capsule,Delayed Release(Dr/Ec) 20 mg PO QAM hydrochlorothiazide 25 mg Tablet 25 mg PO QAM dicyclomine 10 mg Capsule 10 mg PO QID PRN (Reason: Abdominal Pain) glipizide 5 mg Tablet 5 mg PO BID Fish Oil 120-180-500 mg Capsule 1 cap PO DAILY empagliflozin 25 mg Tablet 12.5 mg PO PM Discontinued acetaminophen [Tylenol Ex Str Arthritis Pain] 500 mg Tablet 1,500 mg PO BID Discharge Orders: Discharge Order (Routine); Ordered 10/23/23 Ordered By: Omsani Fernández Admission Data Admit Date/Time: 10/22/23 14:21 Attending Provider: Kofi Eldridge Admit Provider: Kofi Eldridge Primary Care Provider: Harvinder Acuña Other Interventions: Discharge Summary Assessment (RN) Last Done: 10/23/23 10:03
== END 2023-10-23 10:48 | disposition home or self-care (01) | DRG 483 ==
LOC: ASU 09:44 → 3E 14:21